=== PATIENT | male | born 1990 | race Caucasian/White ===

== ENCOUNTER 2021-05-21 14:01 | Inpatient (IN) | payer OTHER ==
[~2021-05-21] VITALS: Ht 190.5 cm; Wt 83.9 kg
[2021-05-21 14:03] VITALS: BP 106/72
[2021-05-21 19:14] LABS: HEMATOCRIT 44.2 % (42.0-52.0); MCH 32.7 pg (26.0-34.0); MCHC 33.9 g/dL (28.0-37.0); MCV 96.4 fL (80.0-100.0); RBC 4.58 mil/uL (4.50-6.00); RDW 13.6 % (10.5-14.5); WBC 8.3 thou/uL (4.0-11.0)
[2021-05-21 19:28] LABS: CALCIUM 8.9 mg/dL (8.5-10.1); POTASSIUM 3.9 mmol/L (3.5-5.1)
[2021-05-21 19:34] LABS: ALBUMIN 3.5 g/dL (3.4-5.0); TOTAL BILIRUBIN 0.7 mg/dL (0.2-1.0); TOTAL PROTEIN 6.5 g/dL (6.4-8.2)
[2021-05-21 20:10] VITALS: BP 118/57
[2021-05-21 22:07] VITALS: BP 118/73
--- NOTE | 2021-05-22 02:31 | NUR ---
PT ARRIVED FROM THE ER A&OX4 ADMISSION DONE AND PT ORIENTED TO THE UNIT. PO HYDROCODONE GIVEN. NIGHT TIME CLEAT MAKER STOPED BY TO SEE PT. IV FENTALYN ON BOARD. PT NPO AT MIDNIGHT FOR SUGERY TOMORROW. WAS CONERNED ABOUT GIRLFRIEND NOT SPENDING THE NIGHT. EDUCATED ABOUT HOSPITAL PROTOCOL. HOUSE SUP STOPED BY TO SEE PT. FALL PREC IN PLACE DUE TO FREQ FALL. CALL LIGHT AT REACH WILL CONT TO MONITOR. IV INTACT FLUIDS INFUSING.
[2021-05-22 03:45] VITALS: BP 100/75
[2021-05-22 07:15] VITALS: BP 106/79
--- NOTE | 2021-05-22 07:29 | NUR ---
ORDERS FOR EVAL AND TREAT. Pt TO HAVE SURGERY TODAY. WILL AWAIT POST-OP ORDERS
--- NOTE | 2021-05-22 10:46 | NUR ---
VARIANCE NOTE: ORDERS RECEIVED FOR O.T. EVAL AND TREAT. PT NPO AT MIDNIGHT FOR POTENTIAL SURGERY THIS DATE; NOW, PT TO TRANSFER TO [facility] FOR NEUROSURG NEEDS. WILL PLAN TO FOLLOW ALONG WITH PT, BUT APPEARS WILL BE D/C'ING SOON. THANK YOU.
--- NOTE | 2021-05-22 11:36 | NUR ---
ASSUMED PT CARE AROUND 0700. PT ALERT X ORIENTED X 4. ON ROOM AIR. IV LEFT FA D5 1/2 NS RUNNING AT 75MLS/HR. PT NOTING A PAIN OF 8, PAIN NOT CONTROLLED BY PAIN MEDICINE. PATIENT IS ANGRY THAT HIS PER ORAL PAIN MEDICINE WAS NOT GIVEN AND THE IV PAIN MEDICINE WAS GIVEN ON A LOW DOSE THAT IS WHY HIS PAIN IS NOT RELIEVING. RN TRIED TO EXPLAIN TO HIM THAT SINCE HE IS NPO, HIS PO PAIN MEDICINE CANNOT BE GIVEN. AROUND [address] RESENDEZ KNOW THAT PT WAS NEEDING MORE PAIN MEDICINE. IV PAIN MEDIICNE WAS GIVEN AROUND 0930, BY 1030, PT SATERTED COMPLAINING THAT THE PAIN MEDICINE IS STILL NOT WORKING, HE WANT TO EAT AND DRINK, HE WANT SOMETHING FOR SLEEP. HE WAS ANGRY AND KEEP ON COMPLAINING THAT HIS PAIN IS NOT BEING CONROLLED SINCE HE CAME TO THE HOSPITAL. RN LET DR. RESENDEZ KNOW ABOUT THE PATIENT'S CONCERN AROUND 1120, DR SAID HE WILL TAKE CARE OF IT. RN LET THE PATIENT KNOW ABOUT IT. PATIENT'S GIRL FRIEND IN THE ROOM. FALL PRECAUTION IN PLACE. WILL CONTINUE TO MONITOR.
--- NOTE | 2021-05-22 11:37 | NUR ---
assessment: elizabeth reviewed chart and when cm went into patients room DR. MADHAVI GAUTAM WAS IN THERE STATING SHE IS REQUESTING TO HAVE [place] [facility] [place] AND EITHER DR. WISEMAN OR SOMEONE IN HIS GROUP WILL DO THE SURGERY THERE AND NOT HERE DUE TO LOGISTICAL REASONS. PT IS AGREEABLE TO TRANSF[place] [facility] ELIZABETH CONTACTED THE [facility] TRANSFER LINE REQUESTING TRANSFER AND SPOKE WITH ASIA [phone]. ASIA STATING THEY ARE AT CAPACITY AND CANNOT CURRENTLY ACCEPT PT AT [facility] [place]OSED FOR ADMISSIONS CURRENTLY. ELIZABETH DISCUSSED THE SITUATION AND THAT DR. MADHAVI BROOKS IS EXPECTING THE PATIENT, ASIA STATING THEY CANNOT ACCEPT AT THIS TIME DUE TO BEDS BUT CAN CALL BACK LATER IN THE AFTERNOON/EVENING. CM NOTIFIED ANTONIO GAUTAM AND SHE STATES SHE WILL NOTIFY DR. WISEMAN. CM UPDATED PT AND BEDSIDE RN ON STATUS. PT IS VERY IRRITABLE STATING THE WAS TOLD HE IS GOING. CM DISCUSSED ISSUE WITH BED AND THAT DR. MADHAVI BROOKS IS BEING NOTIFIED. PT ALSO STATING IF HE DOES TRANSFER HE IS REFUSING TO GO IN AN AMBULANCE IT CAUSES HIM SEVERE ANXIETY/PANIC ATTACK. ELIZABETH DISCUSSED IN LOS AND WITH CM DIRECTOR AND PT WILL HAVE TO TRANSFER VIA AMBULANCE DUE TO SAFETY CONCERNS. CM NOTIFIED PT WHO IS VERY IRRITABLE ABOUT THIS. CM NOTIFIED CM DIRECTOR TO DISCUSS WITH PATIENT.
[2021-05-22 14:56] VITALS: BP 123/80
--- NOTE | 2021-05-22 16:35 | NUR ---
ON-GOING ASSESSMENT: ELIZABETH AGAIN REACHED OUT TO [facility] TRANSFER TEAM [phone] TO GET AN UPDATE ANTONIO GAUTAM FOR DR. WISEMAN SAYS PATIENT SHOULD BE ABLE TO TRANSFER [place] [facility]. ELIZABETH SPOKE WITH SONIA AT TRANSFER TEAM WHO REPORTS THEY ARE AWAITING TO CONNECT PHYSICIANS. CM UPDATED ANTONIO AND ALSO PROVIDED HER WITH THE TRANSFER TEAM NUMBER. SONIA STATING SHE CANNOT CONFIRM IF THEY HAVE A BED FOR TODAY UNTIL THE PHYSICIANS SPEAK CM NOTIFIED ANTONIO. ELIZABETH ALSO ORDERED A CHART COPY IN PREPARTION OF TRANSFER. CM DIRECTOR SPOKE WITH PT HE HAS SEVERE ANXIETY TRANSFERRING IN AMBULANCE DUE TO PAST EXPERIENCE BUT STATES HE IS AGREEABLE TO GO VIA AMBULANCE IF HE CAN RECEIVE ONE TIME DOSE OF XANAX PRIOR TO DISCHARGE. CM NOTIFIED DYNAMO REPAIRER WHO ORDERED XANAX. BEDSIDE RN IS AWARE. [place] FORM IS ON THE FRONT OF CHART AND FAXED TO [facility] [phone] IN PREPARTION IF BED IS AVAIABLE. IF BED IS AVAILABLE AT [facility] THEY WILL CONTACT BEDSIDE RN AND TRANSFER TEAM HAS THE CONTACT FOR THE NURSING UNIT TO CALL BEDSIDE RN (SUZANNE). BEDSIDE RN IS THEN TO CALL [facility] [phone] TO ARRANGE TRANSPORT. TRANSFER FORM IS ON FRONT OF CHART AND WILL NEED TO BE COMPLETED BY BEDSIDE RN, BEDSIDE RN AWARE. [facility] WILL CALL WITH NUMBER FOR REPORT IF THEY HAVE A BED AVAILABLE. ORDERS WILL NEED TO BE FAXED AT THAT TIME TO [phone].
[2021-05-22 17:22] VITALS: BP 125/81
[2021-05-22 19:41] VITALS: BP 121/79
--- NOTE | 2021-05-22 20:05 | NUR ---
Assumed care from HENRIETTA Shaver at 1530 as pt was very upset with care received and requesting a new nurse; talked to the patient and he was able to calm down. On regular diet- tolerating well; no nausea, no vomiting and no abdominal pain. On MS, not on telemetry; no complains and signs of chest pain, crushing sensation and heaviness. Assisted in ADLs. Continent of bowel and bladder, able to go to the toilet independently. Falls bundle in place. With SL at L FA- infiltrated and requested to have IV removed and does not want to have it resited. Complained of pain, due PRN PO medications given as prescribed. For [place] [facility] CM already faxed needed documents; a/w call back from [facility] [place]: [place] number to be given. With relative at bedside; update given. Pt getting frustrated this evening; [facility] [place] back after shift change that bed is available; night RN informed; forms filled up- night RN gave report to receiving [facility] nurse. Faxed PCS form to [facility] and scheduled apple picking supervisor; pt updated and informed him that he is first on the list; PRN Xanax to be given prior to ambulance trip. Report given to HENRIETTA Jones; a/w LIS to apple picking supervisor patient.
== END 2021-05-22 20:28 | disposition short-term general hospital (02) | DRG 552 ==
LOC: ER 14:01 → EROBS 20:07 → 4S 20:07
PROVIDERS: Nurse Practitioner Family; ADMIT Hospitalist; ATTEND Hospitalist
DX: M51.16 Intervertebral disc disorders with radiculopathy, lumbar region (principal)
CPT/HCPCS: 10102